=== PATIENT | female | born 1965 | race Hispanic/Latino ===

== ENCOUNTER 2019-11-29 12:15 | Outpatient (CLI) | payer OTHER ==
--- NOTE | 2019-11-29 12:45 | RAD ---
EXAM: 3 views of the right knee HISTORY: Knee pain COMPARISON: None FINDINGS: No knee effusion is seen. There is no evidence of acute fracture or dislocation. Mild bingham lofemoral degenerative changes are seen. No soft tissue swelling is present. IMPRESSION: No evidence of acute osseous abnormality.
== END 2019-11-29 12:16 | disposition home or self-care (01) ==
LOC: SCSRAD 12:15
PROVIDERS: ATTEND Family Medicine
DX: M25.561 Pain in right knee (principal)